=== PATIENT | male | born 1985 | race Asian ===

== ENCOUNTER 2019-05-05 03:06 | Emergency (ER) | payer BC, OTHER ==
[~2019-05-05] VITALS: Ht 172.7 cm; Wt 81.9 kg
[~2019-05-05 03:06] MED LIST: CEPH-443 PO; IBUP800T48 PO
[2019-05-05 03:21] VITALS: BP 137/80; PULSE 78; RESP 18; Ht 172.7 cm; Wt 81.9 kg
[2019-05-05] MEDS ORDERED: KETOROLAC 30 MG INJ IM STA (04:19)
[2019-05-05] MEDS ORDERED: HYDROCODONE/APAP (5/325) TAB PO ONE (04:30)
== END 2019-05-05 06:01 | disposition home or self-care (01) ==
LOC: FTE 03:06
DX: M25.571 Pain in right ankle and joints of right foot (principal)
CPT/HCPCS: 73610; 73630; 96372; 99284; J1885